=== PATIENT | female | born 1970 | race African-American/Black ===

== ENCOUNTER 2023-08-19 11:49 | Outpatient (CLI) | payer OTHER ==
[~2023-08-19 11:49] MED LIST: CARDIZEM30 MG; CATAFLAM50 MG PO; DILTIAZEM 24HR240 M1 PO; NORFLEX 30MG30 MG/ML IM; ORPH100T PO; TORADOL60 MG IM; VASOTEC5 MG; VASOTEC5 MG PO; VOLTAREM 50 MG PO
== END 2023-08-19 11:55 | disposition home or self-care (01) ==
LOC: RAD 11:49
PROVIDERS: ATTEND Internal Medicine
DX: I10 Essential (primary) hypertension (principal); E04.9 Nontoxic goiter, unspecified

== ENCOUNTER 2023-09-28 13:54 | Outpatient (CLI) | payer OTHER | END 2023-09-28 14:03 | disposition home or self-care (01) | LOC: MAMO-SONO 13:54 | PROVIDERS: ATTEND Obstetrics & Gynecology | DX: N60.01 Solitary cyst of right breast (principal); Z12.31 Encounter for screening mammogram for malignant neoplasm of breast ==